=== PATIENT | female | born 1985 | race Caucasian/White ===

== ENCOUNTER 2019-12-01 13:49 | Emergency (ER) | payer BC, OTHER ==
[~2019-12-01] VITALS: Ht 167.6 cm; Wt 122.9 kg
[2019-12-01] MEDS ORDERED: tylenol 1 gm (13:59)
[2019-12-01] MEDS ORDERED: IBUPROF (13:59)
[2019-12-01] MEDS ORDERED: CLEO300C2 PO (15:09)
[2019-12-01] MEDS ORDERED: IBUP-1022 PO (15:09)
[2019-12-01 15:20] VITALS: BP 170/89
== END 2019-12-01 15:23 | disposition home or self-care (01) ==
LOC: M ED 13:49
DX: K08.89 Other specified disorders of teeth and supporting structures (principal)